=== PATIENT | male | born 1960 | race African-American/Black ===

== ENCOUNTER 2018-11-02 19:58 | Emergency (ER) | payer OTHER ==
[~2018-11-02] VITALS: Ht 188 cm; Wt 116.1 kg
[2018-11-02] MEDS ORDERED: HYDR25TA4 PO (20:22)
[2018-11-02] MEDS ORDERED: ATEN25TA PO (20:22)
[2018-11-02] MEDS ORDERED: AMLO10TA7 PO (20:22)
[2018-11-02] MEDS ORDERED: GABA300C PO (20:22)
--- NOTE | 2018-11-02 21:10 | NUR ---
Dr. Lin at bedside for MSE.
--- NOTE | 2018-11-02 21:53 | NUR ---
Dr. Lin speaking with Dr. Walden.
[2018-11-02 21:59] LABS: BASOPHILS # (AUTO) 0.1 K/uL (0.0-8.0); BASOPHILS % (AUTO) 1.5 % (0.0-2.0); EOSINOPHILS # (AUTO) 0.2 K/uL (0.0-0.7); EOSINOPHILS % (AUTO) 3.2 % (0.0-7.0); HEMATOCRIT 40.3 % (36.7-47.1); HEMOGLOBIN 13.2 g/dL (12.5-16.3); LYMPHOCYTES # (AUTO) 2.6 K/uL (20.0-40.0); LYMPHOCYTES % (AUTO) 40.2 % (20.5-51.5); MEAN CORPUSCULAR HEMOGLOBIN 25.9 uug (23.8-33.4); MEAN CORPUSCULAR HGB CONC 33 g/dL (32.5-36.3); MEAN CORPUSCULAR VOLUME 78.8 fL (73.0-96.2); MONOCYTES # (AUTO) 0.4 K/uL (2.0-10.0); MONOCYTES % (AUTO) 6.6 % (0.0-11.0); NEUTROPHILS # (AUTO) 3.1 K/uL (1.8-8.9); NEUTROPHILS % (AUTO) 48.5 % (38.5-71.5); PLATELET COUNT (AUTO) 218 K/uL (152-348); RED BLOOD CELL COUNT(AUTO) 5.11 MIL/uL (4.06-5.63); WHITE BLOOD COUNT (AUTO) 6.4 K/uL (3.6-10.2)
--- NOTE | 2018-11-02 21:59 | NUR ---
TEXTED DR. MCNAMARA FOR MRI APPROVAL. 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
[2018-11-02 22:05] LABS: POTASSIUM 3.5 mmol/L (3.5-5.1)
--- NOTE | 2018-11-02 22:06 | NUR ---
MRI APPROVED, NO TECH AVAILABLE TILL TOMORROW MORNING AT 8.30AM
[2018-11-02 22:11] LABS: BILIRUBIN,DIRECT 0.1 mg/dL (0.0-0.2); BILIRUBIN,TOTAL 0.2 mg/dL (0.2-1.0); TOTAL PROTEIN, SERUM 8.6 g/dL (6.4-8.2)
[2018-11-02] MEDS ORDERED: ETOMIDATE 20 MG/10 ML VIAL IV ONE (22:45)
[2018-11-02] MEDS ORDERED: METRONIDAZOLE 500 MG/NS 100ML 100 ML IV ONE (22:45)
[2018-11-02] MEDS ORDERED: DEXAMETHASONE SOD PHOSPHATE 4 MG INJ IV ONE (22:45)
[2018-11-02] MEDS ORDERED: IV NORMAL SALINE 1000 ML BAG IV ONE (22:45)
[2018-11-02] MEDS ORDERED: SUCCINYLCHOLINE CHLORIDE 200 MG/10 ML VIAL IV ONE (22:45)
[2018-11-02] MEDS ORDERED: NOREPINEPHRINE BITARTRATE 8 MG in IV DEXTROSE 5% 500 ML IV ONE (22:45)
[2018-11-02] MEDS ORDERED: VANCOMYCIN IV 1,000 MG in IV DEXTROSE 5% 250 ML IV ONE (22:45)
[2018-11-02] MEDS ORDERED: PROPOFOL 100 ML IV PRN (22:45)
[2018-11-02] MEDS ORDERED: GENTAMICIN SULFATE INJ 80 MG in IV DEXTROSE 5% 100 ML IV ONE (22:45)
[2018-11-02] MEDS ORDERED: PROPOFOL 200 MG/20 ML BOTTLE IV ONE (22:45)
--- NOTE | 2018-11-02 23:00 | NUR ---
Pt sleeping in bed, no acute signs of distress.
--- NOTE | 2018-11-03 00:18 | NUR ---
Lucille santana in [facility] - 11/03/18 at 0459 by BONNY PEDRO [place] 1am, trip#[phone]
--- NOTE | 2018-11-03 00:30 | NUR ---
Pt sleeping in bed, no acute signs of distress.
--- NOTE | 2018-11-03 01:30 | NUR ---
Pt sleeping in bed, no acute signs of distress.
--- NOTE | 2018-11-03 02:30 | NUR ---
Pt sleeping in bed, no acute signs of distress.
--- NOTE | 2018-11-03 03:30 | NUR ---
Pt sleeping in bed, no acute signs of distress.
--- NOTE | 2018-11-03 04:30 | NUR ---
Pt sleeping in bed, no acute signs of distress.
--- NOTE | 2018-11-03 05:04 | NUR ---
Called [facility] to arrange transport to [place], trip#[phone], eta [phone].
--- NOTE | 2018-11-03 05:45 | NUR ---
Called [facility], spoke with Hugo, states MRI will not be done until 1030. [facility] notified to delay ETA to 1000.
--- NOTE | 2018-11-03 07:07 | NUR ---
Report given to Lory michaud.
--- NOTE | 2018-11-03 07:33 | NUR ---
Patient was seen ambulating to the bathroom wih steady gait, still for MRI at this time.
--- NOTE | 2018-11-03 10:03 | NUR ---
Patient left ER in stable condition.
--- NOTE | 2018-11-03 12:16 | NUR ---
Patient came back from MRI in same condition, pending MRi results@this time.
--- NOTE | 2018-11-03 12:20 | NUR ---
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
--- NOTE | 2018-11-03 12:23 | NUR ---
Patient is seen using his personal electronic device, holding his cellphone well with right hand, NAD.
--- NOTE | 2018-11-03 13:05 | NUR ---
Patient ate a whole turkey sandwich, a cup of peaches with a bottle of juice,+ good appetite. IV removed. Catheter intact and site benign. Pressure and 4x4 gauze applied to site. No bleeding noted. Patient discharged to home in stable conditon & steady gait. Written and verbal after care instructions given. Copies of all the final MRI results were provided to patient per patient's request. Patient verbalizes understanding of instructions.
== END 2018-11-03 13:14 | disposition home or self-care (01) ==
LOC: ER 20:00
DX: R53.1 Weakness (principal); Z79.899 Other long term (current) drug therapy
CPT/HCPCS: 36415; 70030-TC; 71045; 72141; 72148; 85025; 85730; 93005; A4663